=== PATIENT | female | born 1985 | race Caucasian/White ===

== ENCOUNTER → 2020-02-16 | Outpatient (CLI) | payer OTHER ==
[2020-02-18 17:39] LABS: CORONAVIRUS (COVID19) CSH-NRL Negative (Negative)
== END ==
LOC: LAB 12:26 → LAB SHORT 12:26
PROVIDERS: Physician Assistant Medical
DX: Z20.828 Contact with and (suspected) exposure to other viral communicable diseases (principal)
CPT/HCPCS: U0003

== ENCOUNTER 2020-04-30 07:09 | Day surgery (SDC) | payer OTHER ==
[~2020-04-30] VITALS: Ht 165.1 cm; Wt 116.6 kg
[~2020-04-30 07:09] MED LIST: THERA-D2000 UNIT PO
[2020-04-30] MEDS ORDERED: METO50ER PO (07:53)
[2020-04-30] MEDS ORDERED: MICROZIDE12.5 MG PO (07:54)
[2020-04-30] MEDS ORDERED: Norco 5-325 Ta1 EACH PO (08:07)
[2020-04-30] MEDS ORDERED: MOBIC7.5 MG PO (08:09)
[2020-04-30] MEDS ORDERED: CYCL10 PO (08:09)
--- NOTE | 2020-04-30 09:52 | NUR ---
04/30/20 0952 Gerda Gomez PT IS VERY DROWSY ALTHOUGH SHE IS EATING COOKIES AND DRINKING FLUID, SHE DOZES OFF BETWEEN BITES, SHE IS BEING ENCOURAGED TO OPEN HER EYES WHILE SHE IS EATING AND TO SWALLOW BEFORE CLOSING THEM. SHE IS FOLLOWING COMMANDS. SHE IS ABLE TO HOLD A CONVERSATION.
== END 2020-04-30 10:28 | disposition home or self-care (01) ==
LOC: ORSCSDS 07:09
PROVIDERS: Obstetrics & Gynecology
PROC: 0U5B8ZZ Destruction of Endometrium, Via Natural or Artificial Opening Endoscopic (ICD-10-PCS; principal; 2020-04-30 08:30)
DX: N92.0 Excessive and frequent menstruation with regular cycle (principal); N94.6 Dysmenorrhea, unspecified; D50.0 Iron deficiency anemia secondary to blood loss (chronic); N85.2 Hypertrophy of uterus; I10 Essential (primary) hypertension; J45.909 Unspecified asthma, uncomplicated; E66.01 Morbid (severe) obesity due to excess calories; Z68.41 Body mass index [BMI] 40.0-44.9, adult; Z79.899 Other long term (current) drug therapy
CPT/HCPCS: 88305; J0690; J1100; J1885; J2250; J2405; J2704; J3010; J7120

== ENCOUNTER → 2020-09-15 | Outpatient (CLI) | payer OTHER ==
[~2020-09-15] MED LIST changes: +CYCL10 PO; +METO50ER PO; +MICROZIDE12.5 MG PO; +MOBIC7.5 MG PO; +Norco 5-325 Ta1 EACH PO
[2020-09-16 14:07] LABS: HPV 16 Negative (Negative); HPV 18 Negative (Negative); HPV OTHER HR TYPES Negative (Negative)
== END ==
LOC: LAB 10:00 → LAB SHORT 10:00
PROVIDERS: Nurse Practitioner Family
DX: Z01.419 Encounter for gynecological examination (general) (routine) without abnormal findings (principal)
CPT/HCPCS: 87070; 87205; 87624; G0123

== ENCOUNTER → 2022-02-15 | Outpatient (CLI) | payer OTHER | LOC: LAB 11:28 → LAB SHORT 11:28 | DX: R50.9 Fever, unspecified (principal) | CPT/HCPCS: 87077; 87086; 87186 ==